=== PATIENT | male | born 1995 | race Caucasian/White ===

== ENCOUNTER 2018-10-28 06:07 | Day surgery (SDC) | payer OTHER ==
[2018-10-25 11:42] VITALS: BMI 27.6
[2018-10-28] MEDS ORDERED: SODIUM CHLORIDE 0.9% P/F 10 ML VIAL IJ ONE (06:43)
[2018-10-28] MEDS ORDERED: MIDAZOLAM HCL 2 MG/2 ML SINGLE DOSE VIAL ONE ×2 (06:43→08:10)
[2018-10-28] MEDS ORDERED: ROPIVACAINE HCL 0.5% 30ML VIAL ONE (06:43)
[2018-10-28] MEDS ORDERED: EPINEPHrine 1:1,000 1 MG/1 ML - 30ML VIAL (INJECTION) ONE (07:09)
[2018-10-28] MEDS ORDERED: LIDOCAINE HCL/PF 2% SDV 5ML VIAL ONE ×2 (07:12→07:13)
[2018-10-28] MEDS ORDERED: KETOROLAC TROMETHAMINE 30 MG/1 ML VIAL ONE (07:12)
[2018-10-28] MEDS ORDERED: DEXAMETHASONE SOD PHOSPHATE 4 MG/1 ML VIAL ONE (07:12)
[2018-10-28] MEDS ORDERED: ONDANSETRON 4 MG/2 ML VIAL ONE ×2 (07:12→10:09)
[2018-10-28] MEDS ORDERED: PROPOFOL 20 ML ONE ×2 (07:13)
[2018-10-28] MEDS ORDERED: SUCCINYLCHOLINE CHLORIDE 200 MG/10 ML VIAL ONE (07:13)
[2018-10-28] MEDS ORDERED: BUPIVACAINE LIPOSOME/PF (EXPAREL) 266 MG/20 ML VIAL ONE (07:48)
[2018-10-28] MEDS ORDERED: ceFAZolin SODIUM 1 GM VIAL ONE (08:24)
[2018-10-28] MEDS ORDERED: BUPIVACAINE HCL/PF 2.5 MG/ML - 30 ML VIAL IJ ONE (09:39)
[2018-10-28] MEDS ORDERED: BUPIVACAINE HCL/PF 0.25% (2.5MG/ML) 10 ML VIAL IJ ONE (09:56)
[2018-10-28] MEDS ORDERED: oxyCODONE HCL 5 MG TABLET PO PRN ×2 (10:53)
[2018-10-28] MEDS ORDERED: PROMETHAZINE HCL 25 MG/1 ML VIAL IVPUSH PRN (10:53)
[2018-10-28] MEDS ORDERED: ONDANSETRON 4 MG/2 ML VIAL IVPUSH PRN (10:53)
[2018-10-28 11:38] VITALS: TEMP 98.4
[2018-10-28 14:58] VITALS: BP 132/62; PULSE 72
--- NOTE | 2018-10-31 09:07 | PATH ---
Surgical Pathology Report Patient Name: BRIGIDA CHAMPION V. [facility]. Rec. #: [id number] /Age/Gender: 1995 (Age: 22) / M Account: [id number] Location: [facility] AMBUL[facility] Taken: 10/28/2018 Received: 10/28/2018 Reported: 10/31/2018 Physicians: Ian Murry M.D. Specimen(s) Received SHAVINGS RIGHT KNEE Clinical History Right knee ACL tear Final Diagnosis KNEE, RIGHT, ARTHROSCOPIC SHAVING: FIBROCARTILAGE WITH MYXOID DEGENERATIVE CHANGES, ALONG WITH PORTIONS OF SYNOVIUM AND BONE. Electronically Signed Salvador Stern M.D. Gross Description Received in formalin, labeled "right knee shavings," is a 4.3 x 4.2 x 0.4 cm. aggregate of tidwell-yellow soft tissue fragments. A inside outside sales representative portion is submitted in one cassette. /10/28/2018 saudi10/28/2018
--- NOTE | 2018-10-31 10:26 | OP ---
DATE OF OPERATION: 10/28/2018 SURGEON: Ian Cohen MD [facility] EDUCATOR: MICHAEL Zuniga PREOPERATIVE DIAGNOSES: 1. Right knee anterior cruciate ligament tear. 2. Right knee medial and lateral meniscal tear. 3. Right knee cartilage tear. 4. Right knee synovitis. POSTOPERATIVE DIAGNOSES: 1. Right knee anterior cruciate ligament tear. 2. Right knee medial and lateral meniscal tear. 3. Right knee cartilage tear. 4. Right knee synovitis. PROCEDURE: 1. Right knee arthroscopy, partial meniscectomy medial and lateral meniscus, CPT code 92035. 2. Right knee arthroscopy with partial meniscectomy medial and lateral meniscus, CPT code 20107. 3. Right knee arthroscopy with chondroplasty, CPT code 08523. 4. Right knee arthroscopy with synovectomy, CPT code 51583. FINDINGS: 1. Medial meniscus posterior horn tear body tear inner one-third 2 cm. 2. Lateral meniscus one-third of lateral meniscus with tear, scarring into the popliteus and posterior portion. 3. Anterior grade 2 cartilage injury 2 cm x 1 cm medial femoral condyle. 4. Complete ACL tear. 5. PCL intact. 6. Minimal cartilage changes lateral joint. 7. Minor grade 1-2 cartilage anterior patella, femoral trochlea, patellofemoral joint. PROCEDURE: Informed consent was obtained. The patient came to the operating room, where the lower extremity was prepped and draped in a sterile fashion. A tourniquet was placed on the upper thigh, but not inflated. Using standard arthroscopic technique, a lateral incision and portal was made to allow for introduction of the camera into the suprapatellar bursa. This was then taken to the medial joint line, where under direct visualization, a medial incision and portal was made. Excessive synovium noted in the medial, lateral and patellofemoral and notch area was removed by an upbiter, shaver and Bovie cautery. This was found to bring in inflammatory tissue into the joint surface, a source of pain and dysfunction. Probing of the medial and lateral meniscus found tears, as described in the findings. These were removed with the upbiter and shaver and taken back to a stable rim. Grade 2 to 3 degenerative changes were treated with a chondroplasty, removing all flaking surfaces with low-setting Bovie along the periphery to prevent further flaking. Grade 4 changes, as noted, were treated with an abrasoplasty, creating a bleeding surface at the bone/cartilage interface. Aggressive debridement with shaver/bean created bleeding surface. Micro fracture also done when indicated in findings. All areas of the knee were once again re-examined. The knee was then drained and a single suture was placed in all portals. A sterile dressing was placed. Patient had complete tear of the anterior cruciate ligament. Remnants of the ACL were removed, and a lateral notchplasty was performed to allow for passage of the graft. With the knee flexed 90 degrees, the notchplasty was performed. A guide was placed anterior to the posterior cruciate ligament at the ACL footprint. A corresponding anteromedial guidewire was placed into the central portion of the joint. This was followed by a 10-mm reamer. Knee was flexed 90 degrees. [id number] position was identified, and a Beath pin was placed through to the anterior femur with a 7-mm offset for the posterior portion of the notch. This was followed by a 10 mm to a depth of 35 mm. Graft was passed through the tibial and femoral side and secured on the femoral side with an 8 mm x 25 mm midline interference screw. The knee was taken through a range of motion and found to have isometric positioning, good stability, and strength and was secured on the tibial side with a 9 mm x 20 mm midline interference screw. Camera was re-introduced in the knee. ACL was found to have good positioning and strength. Excess bone from the tibial plugs was placed into the donor sites, and a layered closure of 0 Vicryl, 2-0 Vicryl, and 3-0 Prolene was performed. A sterile dressing was placed. The patient was transferred to the recovery room without complication. The PA listed above was present and assisted at surgery. Their presence was absolutely medically necessary for the completion of the procedure. They helped hold the arthroscopy, pass instruments (and implants when indicated) and the procedure could not have been completed without their assistance. IAN COHEN M.D. [id number]
== END 2018-10-28 13:00 | disposition home or self-care (01) ==
LOC: FASU 06:07
PROVIDERS: ATTEND Orthopaedic Surgery
PROC: 0SBC4ZZ Excision of Right Knee Joint, Percutaneous Endoscopic Approach (ICD-10-PCS; 2018-10-28)
PROC: 0SBC4ZZ Excision of Right Knee Joint, Percutaneous Endoscopic Approach (ICD-10-PCS; 2018-10-28)
PROC: 0SBC4ZZ Excision of Right Knee Joint, Percutaneous Endoscopic Approach (ICD-10-PCS; 2018-10-28)
PROC: 0MSN4ZZ Reposition Right Knee Bursa and Ligament, Percutaneous Endoscopic Approach (ICD-10-PCS; principal; 2018-10-28 07:30)
DX: S83.511A Sprain of anterior cruciate ligament of right knee, initial encounter (principal); S83.241A Other tear of medial meniscus, current injury, right knee, initial encounter; S83.281A Other tear of lateral meniscus, current injury, right knee, initial encounter; S83.8X1A Sprain of other specified parts of right knee, initial encounter; M65.861 Other synovitis and tenosynovitis, right lower leg; X58.XXXA Exposure to other specified factors, initial encounter; Y93.9 Activity, unspecified; Y92.9 Unspecified place or not applicable
CPT/HCPCS: 29876; 29879; 29880; 29888; C1713; 88304-TC; 94760